=== PATIENT | female | born 1945 | race Asian ===

== ENCOUNTER 2018-04-22 09:05 | Day surgery (SDC) | payer OTHER, MEDICARE ==
[2018-04-21 15:09] VITALS: BMI 22.6
[~2018-04-22 09:05] MED LIST: ACETAMINOPHEN 325 MG TABLET (FP) PO PRN; CHONDROITIN SU A/HYALUR SOD 1 KIT IO ONE; CYCLOPENTOLATE HCL 1% OPHTH SOLN 2 ML BOTTLE OP SCH; EPINEPHrine/PF 1 MG/1 ML (1:1,000) AMPULE SQ ONE; FLURBIPROFEN 0.03% OPHTH SOLN 2.5 ML BOTTLE OP SCH; LIDOCAINE HCL 1% PRESERVATIVE FREE - 30ML VIAL IO ONE; OFLOXACIN 0.3% OPHTHALMIC SOLUTION 5 ML BOTTLE OP SCH; PHENYLEPHRINE 2.5% OPHTH SOLN 15 ML BOTTLE OP SCH; TETRACAINE 0.5% OPHTH SOLN 2 ML BOTTLE TP ONE; TROPICAMIDE 1% OPHTH SOLN 15 ML BOTTLE OP SCH; TRYPAN BLUE 0.5 ML DISP.SYRIN IO ONE
[2018-04-22] MEDS ORDERED: FLURBIPROFEN 0.03% OPHTH SOLN 2.5 ML BOTTLE ONE (09:41)
[2018-04-22] MEDS ORDERED: TROPICAMIDE 1% OPHTH SOLN 15 ML BOTTLE ONE (09:42)
[2018-04-22] MEDS ORDERED: CYCLOPENTOLATE HCL 1% OPHTH SOLN 2 ML BOTTLE ONE (09:42)
[2018-04-22] MEDS ORDERED: OFLOXACIN 0.3% OPHTHALMIC SOLUTION 5 ML BOTTLE ONE (09:42)
[2018-04-22] MEDS ORDERED: PHENYLEPHRINE 2.5% OPHTH SOLN 15 ML BOTTLE ONE (09:42)
[2018-04-22 09:49] VITALS: TEMP 98.2
[2018-04-22] MEDS ORDERED: TETRACAINE 0.5% OPHTH SOLN 2 ML BOTTLE TP ONE (11:48)
[2018-04-22] MEDS ORDERED: MIDAZOLAM HCL 2 MG/2 ML SINGLE DOSE VIAL ONE (11:51)
[2018-04-22] MEDS ORDERED: LIDOCAINE HCL 1% PRESERVATIVE FREE - 30ML VIAL IO ONE (12:00)
[2018-04-22] MEDS ORDERED: CHONDROITIN SU A/HYALUR SOD 1 KIT IO ONE (12:01)
[2018-04-22] MEDS ORDERED: EPINEPHrine/PF 1 MG/1 ML (1:1,000) AMPULE SQ ONE (12:01)
[2018-04-22] MEDS ORDERED: TETRACAINE 0.5% OPHTH SOLN 2 ML BOTTLE ONE (13:23)
[2018-04-22] MEDS ORDERED: EPINEPHrine/PF 1 MG/1 ML (1:1,000) AMPULE ONE (13:23)
[2018-04-22] MEDS ORDERED: LIDOCAINE HCL/PF 1% SDV 5ML VIAL ONE (13:23)
--- NOTE | 2018-04-22 13:40 | SPEC ---
DATE OF OPERATION: DATE OF DICTATION: 04/22/2018 PREOPERATIVE DIAGNOSIS: Cataract, left eye. POSTOPERATIVE DIAGNOSIS: Cataract, left eye. PROCEDURE: Phacoemulsification of left eye with posterior chamber intraocular lens implantation, the lens used [id number], 22.0-diopter power, serial number [id number]. SURGEON: Iglesia Luther MD ANESTHESIA: Topical, MAC. COMPLICATIONS: None. PROCEDURE: The patient was brought to the operating room and correctly identified along with the operative site and the correct intraocular lens baird. The patient was then prepped and draped in the usual sterile fashion including 5% Betadine solution in the conjunctival sac and an eyelid drape. An eyelid speculum was then placed in the eye. A paracentesis port was created and approximately 0.5 mL of preservative-free lidocaine was then injected into the eye. Viscoelastic was then injected to inflate the anterior chamber. A temporal clear corneal wound was created. A continuous circular capsulorrhexis was performed. The nucleus was then hydrodissected with BSS and removed with phacoemulsification. The remaining cortical material was irrigated and aspirated. Viscoelastic was injected to inflate the capsular bag and the intraocular lens was then implanted into the capsular bag. The remaining viscoelastic was irrigated and aspirated from the eye. The IOL was noted to be well centered and completely covered by the anterior capsulorrhexis. Topical vancomycin was placed and the eye patched and shielded. All wounds were tested and found to be watertight. No suture was placed. The eye was then shielded. The patient was then discharged from the operating room in stable condition. IGLESIA LUTHER M.D. [id number]
[2018-04-22 14:01] VITALS: BP 125/56; PULSE 58
[2018-04-22] MEDS ORDERED: CHONDROITIN SU A/HYALUR SOD 1 KIT ONE (14:19)
== END 2018-04-22 14:01 | disposition home or self-care (01) ==
LOC: JASU-SURG 09:05
PROVIDERS: ATTEND Ophthalmology
PROC: 08RK3JZ Replacement of Left Lens with Synthetic Substitute, Percutaneous Approach (ICD-10-PCS; principal; 2018-04-22 11:00)
DX: H26.9 Unspecified cataract (principal)

== ENCOUNTER 2021-12-08 13:14 | Emergency (ER) | payer OTHER, MEDICARE ==
[2021-12-08 13:27] VITALS: BMI 22.4
[2021-12-08] MEDS ORDERED: ACETAMINOPHEN 1000 MG/100 ML BAG IVPB ONE (13:50)
[2021-12-08] MEDS ORDERED: ACETAMINOPHEN INJECTION 100 ML IVPB ONE (13:56)
[2021-12-08 14:21] LABS: BASO % 0.2 % (0-2.0); EOS % 1.2 % (0-4.5); HEMOGLOBIN 12.9 GM/dL (10.7-15.3); LYMPH % 13.2 % (8-40); MCH 31.8 pg (25.7-33.7); MCHC 33.8 g/dl (32.0-36.0); MEAN CELL VOLUME 94.1 fl (80-96); MEAN PLT VOLUME 8.8 fl (7.5-11.1); MONO % 6.8 % (3.8-10.2); NEUT % 78.6 % (42.8-82.8); PLATELET COUNT 163 10^3/uL (134-434); RBC 4.04 M/mm3 (3.60-5.2); RDW 13.7 % (11.6-15.6); WHITE BLOOD COUNT 7.7 K/mm3 (4.0-10.0)
[2021-12-08 14:38] LABS: EPI CELLS 4 /uL (0-25.1); HYALINE CASTS 1 /uL (0-3.1); URINE APPEARANCE CLEAR; URINE BACTERIA 10 /uL (0-1359); URINE BILIRUBIN NEGATIVE (NEGATIVE); URINE COLOR DK YELLOW; URINE GLUCOSE (UA) NEGATIVE (NEGATIVE); URINE KETONE NEGATIVE (NEGATIVE); URINE LEUK ESTERASE TRACE (NEGATIVE); URINE NITRITE NEGATIVE (NEGATIVE); URINE PROTEIN NEGATIVE (NEGATIVE); URINE UROBILINOGEN 0.2 mg/dL (0.2-1.0); URINE WBC 9 /uL (0-25.8)
[2021-12-08 14:40] LABS: URINE RBC 72.5 /uL (0-23.9)
[2021-12-08 14:42] LABS: CALCIUM 9.6 mg/dL (8.5-10.1)
[2021-12-08 14:43] LABS: ALBUMIN 3.9 g/dl (3.4-5.0); BLOOD UREA NITROGEN 16.2 mg/dL (7-18)
[2021-12-08 14:47] LABS: BILIRUBIN,TOTAL 0.5 mg/dL (0.2-1); TOT PROT 7.5 g/dl (6.4-8.2)
[2021-12-08 18:56] VITALS: BP 140/80; PULSE 63; TEMP 98.7
== END 2021-12-08 18:55 | disposition home or self-care (01) ==
LOC: JER 13:14
PROC: 3E0333Z Introduction of Anti-inflammatory into Peripheral Vein, Percutaneous Approach (ICD-10-PCS; principal; 2021-12-08)
DX: R10.31 Right lower quadrant pain (principal)
CPT/HCPCS: 36415; 74177-TC; 80053; 81003; 83690; 85025; 87086; 99285-25; Q9967

== ENCOUNTER 2022-02-20 04:38 | Day surgery (SDC) | payer OTHER, MEDICARE ==
[2022-02-15 13:17] VITALS: BMI 23.0
[~2022-02-20 04:38] MED LIST changes: -CHONDROITIN SU A/HYALUR SOD 1 KIT IO ONE; -EPINEPHrine/PF 1 MG/1 ML (1:1,000) AMPULE SQ ONE; -FLURBIPROFEN 0.03% OPHTH SOLN 2.5 ML BOTTLE OP SCH; +KETOROLAC TROMETHAMINE 0.5% EYE DROP 1 DROP DROPS OP SCH; -LIDOCAINE HCL 1% PRESERVATIVE FREE - 30ML VIAL IO ONE; -TETRACAINE 0.5% OPHTH SOLN 2 ML BOTTLE TP ONE; -TRYPAN BLUE 0.5 ML DISP.SYRIN IO ONE
[2022-02-20] MEDS ORDERED: CHONDROITIN SU A/HYALUR SOD 1 KIT ONE (07:03)
[2022-02-20] MEDS ORDERED: LIDOCAINE HCL/PF 1% SDV 5ML VIAL ONE (07:03)
[2022-02-20] MEDS ORDERED: TROPICAMIDE 1% OPHTH SOLN 15 ML BOTTLE ONE (07:06)
[2022-02-20] MEDS ORDERED: OFLOXACIN 0.3% OPHTHALMIC SOLUTION 5 ML BOTTLE ONE (07:06)
[2022-02-20] MEDS ORDERED: CYCLOPENTOLATE HCL 1% OPHTH SOLN 2 ML BOTTLE ONE (07:06)
[2022-02-20] MEDS ORDERED: PHENYLEPHRINE 2.5% OPTHALMIC DROP BOTTLE ONE (07:06)
[2022-02-20] MEDS ORDERED: KETOROLAC TROMETHAMINE 0.5% EYE DROP 1 DROP DROPS ONE (07:06)
[2022-02-20] MEDS ORDERED: EPINEPHrine/PF 1 MG/1 ML (1:1,000) AMPULE ONE (07:13)
[2022-02-20] MEDS ORDERED: BSS (NA/CA/MG/K) BALANCED SALT SOLUTION OPHTH SOLN 15 ML BOTTLE ONE (07:13)
[2022-02-20] MEDS ORDERED: TETRACAINE 0.5% OPHTH SOLN 2 ML BOTTLE ONE (07:13)
[2022-02-20] MEDS ORDERED: POVIDONE-IODINE 5% OPHTHALMIC PREP 30 ML SOLUTION ONE (07:14)
[2022-02-20] MEDS ORDERED: KETOROLAC TROMETHAMINE 0.5% EYE DROP 1 DROP DROPS OD ONE ×3 (07:15→07:25)
[2022-02-20] MEDS ORDERED: TROPICAMIDE 0.5% OPHTHALMIC SOLN 15 ML BOTTLE OD ONE (07:15)
[2022-02-20] MEDS ORDERED: PHENYLEPHRINE 2.5% OPHTH SOLN 15 ML BOTTLE OD ONE ×3 (07:15→07:25)
[2022-02-20] MEDS ORDERED: CYCLOPENTOLATE HCL 1% OPHTH SOLN 2 ML BOTTLE OD ONE ×3 (07:15→07:25)
[2022-02-20] MEDS ORDERED: OFLOXACIN 0.3% OPHTHALMIC SOLUTION 5 ML BOTTLE OD ONE ×3 (07:15→07:25)
[2022-02-20] MEDS ORDERED: TROPICAMIDE 1% OPHTH SOLN 15 ML BOTTLE OD ONE ×2 (07:20→07:25)
[2022-02-20] MEDS ORDERED: MIDAZOLAM HCL 2 MG/2 ML SINGLE DOSE VIAL ONE (08:43)
[2022-02-20] MEDS ORDERED: TETRACAINE 0.5% OPHTH SOLN 2 ML BOTTLE OD ONE (08:48)
[2022-02-20] MEDS ORDERED: POVIDONE-IODINE 5% OPHTHALMIC PREP 30 ML SOLUTION OD ONE (08:50)
[2022-02-20] MEDS ORDERED: BSS (NA/CA/MG/K) BALANCED SALT SOLUTION OPHTH SOLN 15 ML BOTTLE IO ONE (09:02)
[2022-02-20] MEDS ORDERED: LIDOCAINE HCL 1% PRESERVATIVE FREE - 30ML VIAL IO ONE (09:03)
[2022-02-20] MEDS ORDERED: CHONDROITIN SU A/HYALUR SOD 1 KIT IO ONE (09:04)
[2022-02-20] MEDS ORDERED: EPINEPHrine/PF 1 MG/1 ML (1:1,000) AMPULE SQ ONE (09:05)
[2022-02-20 11:03] VITALS: BP 114/60; PULSE 60; TEMP 97.5
== END 2022-02-20 10:40 | disposition home or self-care (01) ==
LOC: JASU-SURG 04:38
PROVIDERS: ATTEND Ophthalmology
PROC: 08RJ3JZ Replacement of Right Lens with Synthetic Substitute, Percutaneous Approach (ICD-10-PCS; principal; 2022-02-20 09:00)
DX: H26.9 Unspecified cataract (principal)

== ENCOUNTER 2022-06-14 15:45 | Inpatient (IN) | payer OTHER, MEDICARE ==
[2022-06-14 18:40] LABS: BASO % 1.1 % (0-2.0); EOS % 3.4 % (0-4.5); HEMATOCRIT 37.3 % (32.4-45.2); HEMOGLOBIN 12.6 GM/dL (10.7-15.3); LYMPH % 23.3 % (8-40); MCH 31.8 pg (25.7-33.7); MCHC 33.9 g/dl (32.0-36.0); MEAN CELL VOLUME 93.7 fl (80-96); MEAN PLT VOLUME 8.6 fl (7.5-11.1); MONO % 8.9 % (3.8-10.2); NEUT % 63.3 % (42.8-82.8); PLATELET COUNT 193 10^3/uL (134-434); RBC 3.98 M/mm3 (3.60-5.2); RDW 14.2 % (11.6-15.6); WHITE BLOOD COUNT 4.5 K/mm3 (4.0-10.0)
[2022-06-14 19:04] LABS: BLOOD UREA NITROGEN 16.1 mg/dL (7-18); CALCIUM 9.2 mg/dL (8.5-10.1)
[2022-06-14 19:09] LABS: BILIRUBIN,TOTAL 0.4 mg/dL (0.2-1); TOT PROT 7.4 g/dl (6.4-8.2)
[2022-06-14 19:15] LABS: PH,URINE 5.5 (5.0-8.0); URINE APPEARANCE CLEAR; URINE BILIRUBIN NEGATIVE (NEGATIVE); URINE COLOR YELLOW; URINE GLUCOSE (UA) NEGATIVE (NEGATIVE); URINE KETONE NEGATIVE (NEGATIVE); URINE LEUK ESTERASE NEGATIVE (NEGATIVE); URINE NITRITE NEGATIVE (NEGATIVE); URINE PROTEIN NEGATIVE (NEGATIVE); URINE UROBILINOGEN 0.2 mg/dL (0.2-1.0)
[2022-06-14] MEDS ORDERED: ASPIRIN 81 MG CHEWABLE TABLETS PO ONE (21:08)
[2022-06-14] MEDS ORDERED: HEPARIN NA (PORCINE) 5,000 UNITS/ML 1ML VIAL IVPUSH ONE (21:16)
[2022-06-14] MEDS ORDERED: HEPARIN - 25,000 UNIT in SODIUM CHLORIDE 495 ML IV SCH (21:30)
[2022-06-14] MEDS ORDERED: HEPARIN NA (PORCINE) 5,000 UNITS/ML 1ML VIAL ONE (21:39)
[2022-06-14] MEDS ORDERED: ASPIRIN 325 MG TABLET ONE (21:39)
[2022-06-14] MEDS ORDERED: HEPARIN INFUSION - 25,000 UNITS/500 ML INFUS.BAG IVPB ONE (21:39)
[2022-06-14 22:42] LABS: INR 1.2 (0.83-1.09); PROTHROMBIN TIME (PATIENT) 13.8 SEC (9.7-13.0)
[2022-06-14 22:45] LABS: ACTIVATED PTT 38.4 SECONDS (25.2-36.5)
[2022-06-14] MEDS ORDERED: ATORVASTATIN CA 20 MG TABLET (FP) ONE (23:14)
[2022-06-14] MEDS: ATORVASTATIN CA 20 MG TABLET (FP) PO SCH (23:22)
[2022-06-15 06:28] LABS: BASO % 1.2 % (0-2.0); EOS % 4.4 % (0-4.5); HEMATOCRIT 35.6 % (32.4-45.2); LYMPH % 30.8 % (8-40); MCH 31.5 pg (25.7-33.7); MCHC 33.7 g/dl (32.0-36.0); MEAN CELL VOLUME 93.5 fl (80-96); MEAN PLT VOLUME 9.4 fl (7.5-11.1); MONO % 10.5 % (3.8-10.2); NEUT % 53.1 % (42.8-82.8); PLATELET COUNT 194 10^3/uL (134-434); RBC 3.81 M/mm3 (3.60-5.2); RDW 14.3 % (11.6-15.6); WHITE BLOOD COUNT 3.9 K/mm3 (4.0-10.0)
[2022-06-15 06:43] LABS: CHLORIDE 111 mmol/L (98-107); SODIUM 144 mmol/L (136-145)
[2022-06-15 06:44] LABS: CALCIUM 8.5 mg/dL (8.5-10.1)
[2022-06-15 06:45] LABS: ANION GAP 5 MMOL/L (8-16); CO2 28 mmol/L (21-32); MAGNESIUM 2.1 mg/dL (1.8-2.4)
[2022-06-15 06:47] LABS: ALBUMIN 3.4 g/dl (3.4-5.0); GLUCOSE,RANDOM 79 mg/dL (74-106)
[2022-06-15 06:48] LABS: CREATININE 0.9 mg/dL (0.55-1.3)
[2022-06-15 06:49] LABS: SGOT/AST 32 U/L (15-37); SGPT/ALT 50 U/L (13-61)
[2022-06-15 06:50] LABS: CHOLESTEROL 184 mg/dL (50-200); TOT PROT 6.1 g/dl (6.4-8.2); TRIGLYCERIDES 129 mg/dL (0-150)
[2022-06-15 06:51] LABS: BILIRUBIN,TOTAL 0.4 mg/dL (0.2-1); LDL CHOLESTEROL (ONLY SJRH) 116 mg/dL (5-100)
[2022-06-15 06:52] LABS: ALK PHOS 57 U/L (45-117)
[2022-06-15 06:53] LABS: HDL CHOLESTEROL 43 mg/dL (40-60)
[2022-06-15] MEDS ORDERED: APIXABAN 5 MG TABLET ONE ×2 (09:37→21:11)
[2022-06-15] MEDS ORDERED: ASPIRIN 81 MG CHEWABLE TABLETS ONE (09:38)
[2022-06-15] MEDS: APIXABAN 5 MG TABLET PO SCH ×2 (10:20→21:34)
[2022-06-15] MEDS: ASPIRIN 81 MG CHEWABLE TABLETS PO SCH (10:20)
[2022-06-15] MEDS: DISOPYRAMIDE PHOSPHATE 150 MG PO SCH ×2 (12:13→17:07)
[2022-06-15] MEDS ORDERED: POLYETHYLENE GLYCOL (HEALTHYLAX) 3350 17 GM PACKET ONE (13:01)
[2022-06-15] MEDS: POLYETHYLENE GLYCOL (HEALTHYLAX) 3350 17 GM PACKET PO SCH (13:02)
[2022-06-15] MEDS ORDERED: SENNOSIDES 8.6MG TABLET (FP) PO PRN (20:55)
[2022-06-15] MEDS ORDERED: SENNOSIDES 8.6MG TABLET (FP) PO ONE (21:11)
[2022-06-15] MEDS ORDERED: CARVEDILOL 25 MG TABLET (FP) ONE (21:11)
[2022-06-15] MEDS ORDERED: ATORVASTATIN CA 20 MG TABLET (FP) ONE (21:11)
[2022-06-15] MEDS: CARVEDILOL 25 MG TABLET (FP) PO SCH (21:34)
[2022-06-15] MEDS: ATORVASTATIN CA 20 MG TABLET (FP) PO SCH (21:34)
[2022-06-16] MEDS: DISOPYRAMIDE PHOSPHATE 150 MG PO SCH ×4 (01:20→18:30)
[2022-06-16] MEDS ORDERED: ACETAMINOPHEN 500 MG TABLET (FP) PO ONE (09:59)
[2022-06-16] MEDS ORDERED: ASPIRIN 81 MG CHEWABLE TABLETS ONE (10:11)
[2022-06-16] MEDS ORDERED: POLYETHYLENE GLYCOL (HEALTHYLAX) 3350 17 GM PACKET ONE (10:11)
[2022-06-16] MEDS ORDERED: ACETAMINOPHEN 325 MG TABLET (FP) ONE (10:11)
[2022-06-16] MEDS ORDERED: APIXABAN 5 MG TABLET ONE ×2 (10:11→21:24)
[2022-06-16] MEDS ORDERED: CARVEDILOL 25 MG TABLET (FP) ONE ×2 (10:12→21:24)
[2022-06-16] MEDS: POLYETHYLENE GLYCOL (HEALTHYLAX) 3350 17 GM PACKET PO SCH (10:20)
[2022-06-16] MEDS: CARVEDILOL 25 MG TABLET (FP) PO SCH ×2 (10:20→21:37)
[2022-06-16] MEDS: APIXABAN 5 MG TABLET PO SCH ×2 (10:20→21:38)
[2022-06-16] MEDS: ASPIRIN 81 MG CHEWABLE TABLETS PO SCH (10:20)
[2022-06-16] MEDS ORDERED: IBUPROFEN 600 MG TABLET (FP) PO ONE (17:54)
[2022-06-16] MEDS ORDERED: ATORVASTATIN CA 20 MG TABLET (FP) ONE (21:24)
[2022-06-16] MEDS: ATORVASTATIN CA 20 MG TABLET (FP) PO SCH (21:38)
[2022-06-17] MEDS: DISOPYRAMIDE PHOSPHATE 150 MG PO SCH ×5 (01:40→22:00)
[2022-06-17 01:51] VITALS: BMI 22.0
[2022-06-17] MEDS: ASPIRIN 81 MG CHEWABLE TABLETS PO SCH (09:36)
[2022-06-17] MEDS: APIXABAN 5 MG TABLET PO SCH ×2 (09:36→21:58)
[2022-06-17] MEDS: POLYETHYLENE GLYCOL (HEALTHYLAX) 3350 17 GM PACKET PO SCH (09:36)
[2022-06-17] MEDS: CARVEDILOL 25 MG TABLET (FP) PO SCH ×2 (09:36→21:58)
[2022-06-17] MEDS: ATORVASTATIN CA 20 MG TABLET (FP) PO SCH (21:58)
[2022-06-18] MEDS ORDERED: SIMETHICONE 80 MG TAB.CHEW (FP) PO ONE (01:11)
[2022-06-18] MEDS: DISOPYRAMIDE PHOSPHATE 150 MG PO SCH ×4 (04:54→22:02)
[2022-06-18] MEDS: POLYETHYLENE GLYCOL (HEALTHYLAX) 3350 17 GM PACKET PO SCH (10:10)
[2022-06-18] MEDS: ASPIRIN 81 MG CHEWABLE TABLETS PO SCH (10:11)
[2022-06-18] MEDS: APIXABAN 5 MG TABLET PO SCH ×2 (10:11→22:02)
[2022-06-18] MEDS: CARVEDILOL 25 MG TABLET (FP) PO SCH ×2 (10:11→22:02)
[2022-06-18] MEDS: ATORVASTATIN CA 20 MG TABLET (FP) PO SCH (22:02)
[2022-06-19] MEDS: DISOPYRAMIDE PHOSPHATE 150 MG PO SCH ×4 (05:49→22:26)
[2022-06-19] MEDS: APIXABAN 5 MG TABLET PO SCH ×2 (10:10→22:10)
[2022-06-19] MEDS: POLYETHYLENE GLYCOL (HEALTHYLAX) 3350 17 GM PACKET PO SCH (10:10)
[2022-06-19] MEDS: ASPIRIN 81 MG CHEWABLE TABLETS PO SCH (10:11)
[2022-06-19] MEDS: CARVEDILOL 25 MG TABLET (FP) PO SCH ×2 (10:11→22:10)
[2022-06-19] MEDS: ATORVASTATIN CA 20 MG TABLET (FP) PO SCH (22:10)
[2022-06-20] MEDS: DISOPYRAMIDE PHOSPHATE 150 MG PO SCH ×3 (05:36→17:55)
[2022-06-20] MEDS: ASPIRIN 81 MG CHEWABLE TABLETS PO SCH (10:23)
[2022-06-20] MEDS: CARVEDILOL 25 MG TABLET (FP) PO SCH (10:23)
[2022-06-20] MEDS: APIXABAN 5 MG TABLET PO SCH (10:24)
[2022-06-20] MEDS: POLYETHYLENE GLYCOL (HEALTHYLAX) 3350 17 GM PACKET PO SCH (10:24)
[2022-06-20 14:09] VITALS: BP 114/64; RESP 20; TEMP 98.2
[2022-06-20 19:57] VITALS: PULSE 56
== END 2022-06-20 20:30 | disposition short-term general hospital (02) | DRG 281 ==
LOC: JER 15:45 → JERBED 21:24 → J4W 06-16 22:47
PROVIDERS: ADMIT Internal Medicine; ATTEND Family Medicine
DX: I21.4 Non-ST elevation (NSTEMI) myocardial infarction (principal); I42.0 Dilated cardiomyopathy; I48.91 Unspecified atrial fibrillation; I10 Essential (primary) hypertension; E78.5 Hyperlipidemia, unspecified; K59.00 Constipation, unspecified; M81.0 Age-related osteoporosis without current pathological fracture; K80.20 Calculus of gallbladder without cholecystitis without obstruction; N28.1 Cyst of kidney, acquired; R10.32 Left lower quadrant pain; M25.512 Pain in left shoulder; R91.1 Solitary pulmonary nodule; I25.10 Atherosclerotic heart disease of native coronary artery without angina pectoris; I44.0 Atrioventricular block, first degree; R00.1 Bradycardia, unspecified; R77.8 Other specified abnormalities of plasma proteins; Z95.0 Presence of cardiac pacemaker
CPT/HCPCS: 0241U-QW; 36415; 71045-TC-FY; 71250-TC; 80053; 80061; 81003; 82962; 83690; 83735; 84484; 85025; 85610; 85730; 87086; 93005; 93010; 93306-TC; 99285-25; C9803-CS; U0003; U0005

== ENCOUNTER 2022-08-09 11:11 | Emergency (ER) | payer OTHER, MEDICARE ==
[2022-08-09 11:32] VITALS: RESP 18; TEMP 98; BMI 22.4
[2022-08-09] MEDS ORDERED: DISOPYRAMIDE PHOSPHATE 150 MG PO ONE (12:15)
[2022-08-09] MEDS ORDERED: DISOPYRAMIDE PHOSPHATE 150 MG CAPSULE PO ONE ×2 (12:59→18:33)
[2022-08-09 16:48] LABS: BASO % 0.7 % (0-2.0); EOS % 1.8 % (0-4.5); HEMATOCRIT 35.5 % (32.4-45.2); LYMPH % 20.5 % (8-40); MCH 31.4 pg (25.7-33.7); MCHC 33.9 g/dl (32.0-36.0); MEAN CELL VOLUME 92.7 fl (80-96); MEAN PLT VOLUME 7.8 fl (7.5-11.1); MONO % 14.3 % (3.8-10.2); NEUT % 62.7 % (42.8-82.8); PLATELET COUNT 237 10^3/uL (134-434); RBC 3.83 M/mm3 (3.60-5.2); RDW 14.1 % (11.6-15.6); WHITE BLOOD COUNT 4.9 K/mm3 (4.0-10.0)
[2022-08-09 17:06] LABS: CHLORIDE 111 mmol/L (98-107); SODIUM 145 mmol/L (136-145)
[2022-08-09 17:08] LABS: ALBUMIN 3.4 g/dl (3.4-5.0); ANION GAP 6 MMOL/L (8-16); BLOOD UREA NITROGEN 14.9 mg/dL (7-18); CALCIUM 9.4 mg/dL (8.5-10.1); CO2 29 mmol/L (21-32); GLUCOSE,RANDOM 68 mg/dL (74-106)
[2022-08-09 17:11] LABS: CREATININE 0.8 mg/dL (0.55-1.3); SGOT/AST 27 U/L (15-37); SGPT/ALT 36 U/L (13-61)
[2022-08-09 17:13] LABS: BILIRUBIN,TOTAL 0.4 mg/dL (0.2-1); TOT PROT 6.4 g/dl (6.4-8.2)
[2022-08-09 17:14] LABS: ALK PHOS 77 U/L (45-117)
[2022-08-09 19:24] VITALS: BP 138/62; PULSE 82
== END 2022-08-09 19:24 | disposition home or self-care (01) ==
LOC: JER 11:11
DX: R00.2 Palpitations (principal)
CPT/HCPCS: 36415; 80053; 84484; 85025; 93005; 93010; 99283-25

== ENCOUNTER 2022-12-26 07:00 | Observation (INO) | payer OTHER, MEDICARE ==
[2022-12-26 07:14] VITALS: BMI 22.4
[2022-12-26 08:28] LABS: INR 1.22 (0.83-1.09); PROTHROMBIN TIME (PATIENT) 14.1 SEC (9.7-13.0)
[2022-12-26 08:35] LABS: BASO % 1.2 % (0-2.0); LYMPH % 24.4 % (8-40); MCH 31.2 pg (25.7-33.7); MCHC 34.3 g/dl (32.0-36.0); MEAN CELL VOLUME 91.1 fl (80-96); MEAN PLT VOLUME 8.7 fl (7.5-11.1); NEUT % 59.4 % (42.8-82.8); PLATELET COUNT 157 10^3/uL (134-434); RBC 3.85 M/mm3 (3.60-5.2); RDW 14.7 % (11.6-15.6); WHITE BLOOD COUNT 3.8 K/mm3 (4.0-10.0)
[2022-12-26 08:41] LABS: CALCIUM 8.5 mg/dL (8.5-10.1)
[2022-12-26 08:42] LABS: ALBUMIN 3.3 g/dl (3.4-5.0)
[2022-12-26 08:47] LABS: BILIRUBIN,TOTAL 0.4 mg/dL (0.2-1); TOT PROT 6.1 g/dl (6.4-8.2)
[2022-12-26 08:48] LABS: BLOOD UREA NITROGEN 20.6 mg/dL (7-18)
[2022-12-26 09:54] LABS: MAGNESIUM 2.1 mg/dL (1.8-2.4)
[2022-12-26 18:00] LABS: N-TERMINAL BNP 2441.6 pg/ml (5-450)
[2022-12-26] MEDS: APIXABAN 5 MG TABLET PO SCH (21:24)
[2022-12-26] MEDS ORDERED: ATORVASTATIN CA 20 MG TABLET (FP) PO SCH (22:00)
[2022-12-26] MEDS ORDERED: CARVEDILOL 6.25 MG TABLET (FP) PO SCH (22:00)
[2022-12-26] MEDS ORDERED: DISOPYRAMIDE PHOSPHATE 150 MG PO SCH (22:00)
[2022-12-27 04:05] VITALS: RESP 18
[2022-12-27] MEDS ORDERED: CARVEDILOL 25 MG TABLET (FP) PO SCH (06:24)
[2022-12-27] MEDS ORDERED: DISOPYRAMIDE PHOSPHATE 150 MG PO SCH (07:00)
[2022-12-27 07:56] LABS: HEMATOCRIT 35.9 % (32.4-45.2); HEMOGLOBIN 12.2 GM/dL (10.7-15.3); MCH 30.8 pg (25.7-33.7); MEAN CELL VOLUME 90.6 fl (80-96); MEAN PLT VOLUME 9.2 fl (7.5-11.1); PLATELET COUNT 168 10^3/uL (134-434); RBC 3.96 M/mm3 (3.60-5.2); RDW 14.6 % (11.6-15.6); WHITE BLOOD COUNT 3.4 K/mm3 (4.0-10.0)
[2022-12-27 08:12] LABS: CALCIUM 8.8 mg/dL (8.5-10.1)
[2022-12-27 08:15] LABS: ALBUMIN 3.4 g/dl (3.4-5.0); CREATININE 0.8 mg/dL (0.55-1.3)
[2022-12-27 08:16] LABS: BILIRUBIN,TOTAL 0.3 mg/dL (0.2-1)
[2022-12-27 08:17] LABS: TOT PROT 6.4 g/dl (6.4-8.2)
[2022-12-27 08:41] LABS: MAGNESIUM 2.1 mg/dL (1.8-2.4)
[2022-12-27] MEDS: APIXABAN 5 MG TABLET PO SCH (09:26)
[2022-12-27] MEDS ORDERED: ASPIRIN COATED 81 MG TABLET.EC PO SCH (10:00)
[2022-12-27] MEDS ORDERED: LISINOPRIL 10 MG TABLET PO SCH (10:00)
[2022-12-27] MEDS ORDERED: VERAPAMIL HCL 240 MG E.R. TABLET PO SCH (10:00)
[2022-12-27 18:28] VITALS: BP 131/71; PULSE 61; TEMP 98.4
== END 2022-12-27 19:25 | disposition home or self-care (01) ==
LOC: JER 07:00 → JERBED 12:50 → J4W 15:37
PROVIDERS: ADMIT Family Medicine; ATTEND Family Medicine
DX: I47.20 Ventricular tachycardia, unspecified (principal); R77.8 Other specified abnormalities of plasma proteins; Z95.0 Presence of cardiac pacemaker; I48.91 Unspecified atrial fibrillation; R10.32 Left lower quadrant pain; E78.5 Hyperlipidemia, unspecified; I10 Essential (primary) hypertension; R91.1 Solitary pulmonary nodule; I42.9 Cardiomyopathy, unspecified; I21.4 Non-ST elevation (NSTEMI) myocardial infarction
CPT/HCPCS: 0241U-QW; 36415; 71045-TC-FY; 76700-TC; 80053; 80061; 83735; 83880; 84443; 84484; 85025; 85027; 85610; 85730; 93005; 93010; 99285-25; G0378

== ENCOUNTER 2023-02-07 16:33 | Observation (INO) | payer OTHER, MEDICARE ==
[2023-02-07 17:40] LABS: BASO % 0.5 % (0-2.0); HEMATOCRIT 34.6 % (32.4-45.2); HEMOGLOBIN 11.9 GM/dL (10.7-15.3); LYMPH % 23.6 % (8-40); MCH 31.1 pg (25.7-33.7); MCHC 34.3 g/dl (32.0-36.0); MEAN CELL VOLUME 90.8 fl (80-96); MEAN PLT VOLUME 9.5 fl (7.5-11.1); MONO % 11.8 % (3.8-10.2); NEUT % 59.1 % (42.8-82.8); PLATELET COUNT 152 10^3/uL (134-434); RBC 3.81 M/mm3 (3.60-5.2); RDW 14.4 % (11.6-15.6); WHITE BLOOD COUNT 4.2 K/mm3 (4.0-10.0)
[2023-02-07 17:47] LABS: INR 1.45 (0.83-1.09); PROTHROMBIN TIME (PATIENT) 16.8 SEC (9.7-13.0)
[2023-02-07 17:49] LABS: ACTIVATED PTT 39.3 SECONDS (25.2-36.5)
[2023-02-07 17:55] LABS: CALCIUM 9.1 mg/dL (8.5-10.1)
[2023-02-07 17:56] LABS: ALBUMIN 3.6 g/dl (3.4-5.0); BLOOD UREA NITROGEN 21.4 mg/dL (7-18); MAGNESIUM 2.1 mg/dL (1.8-2.4)
[2023-02-07 17:59] LABS: CREATININE 1.1 mg/dL (0.55-1.3)
[2023-02-07 18:01] LABS: BILIRUBIN,TOTAL 0.3 mg/dL (0.2-1); TOT PROT 6.5 g/dl (6.4-8.2)
[2023-02-07] MEDS ORDERED: DISOPYRAMIDE PHOSPHATE 150 MG PO SCH (22:00)
[2023-02-07] MEDS ORDERED: ATORVASTATIN CA 20 MG TABLET (FP) PO SCH (22:00)
[2023-02-07] MEDS ORDERED: ATORVASTATIN CA 20 MG TABLET (FP) ONE (22:34)
[2023-02-07] MEDS ORDERED: CARVEDILOL 25 MG TABLET (FP) ONE (22:35)
[2023-02-07] MEDS ORDERED: APIXABAN 5 MG TABLET ONE (22:35)
[2023-02-07] MEDS: CARVEDILOL 25 MG TABLET (FP) PO SCH (22:40)
[2023-02-07] MEDS: APIXABAN 5 MG TABLET PO SCH (22:52)
[2023-02-08 00:17] VITALS: BMI 22.6
[2023-02-08] MEDS ORDERED: DISOPYRAMIDE PHOSPHATE 150 MG PO SCH ×2 (06:00→14:00)
[2023-02-08 08:19] LABS: BASO % 0.8 % (0-2.0); EOS % 6.7 % (0-4.5); HEMATOCRIT 35.3 % (32.4-45.2); HEMOGLOBIN 12.1 GM/dL (10.7-15.3); LYMPH % 25.2 % (8-40); MCH 31.4 pg (25.7-33.7); MCHC 34.4 g/dl (32.0-36.0); MEAN CELL VOLUME 91.4 fl (80-96); MEAN PLT VOLUME 9.4 fl (7.5-11.1); MONO % 11.4 % (3.8-10.2); NEUT % 55.9 % (42.8-82.8); PLATELET COUNT 157 10^3/uL (134-434); RBC 3.86 M/mm3 (3.60-5.2); RDW 14.6 % (11.6-15.6); WHITE BLOOD COUNT 3.6 K/mm3 (4.0-10.0)
[2023-02-08 08:36] LABS: ALBUMIN 3.7 g/dl (3.4-5.0); BLOOD UREA NITROGEN 14.5 mg/dL (7-18); CALCIUM 8.9 mg/dL (8.5-10.1)
[2023-02-08 08:39] LABS: CREATININE 0.8 mg/dL (0.55-1.3)
[2023-02-08 08:41] LABS: BILIRUBIN,TOTAL 0.6 mg/dL (0.2-1); TOT PROT 6.7 g/dl (6.4-8.2)
[2023-02-08] MEDS: CARVEDILOL 25 MG TABLET (FP) PO SCH (09:36)
[2023-02-08] MEDS: APIXABAN 5 MG TABLET PO SCH (09:37)
[2023-02-08 09:43] VITALS: RESP 18
[2023-02-08] MEDS ORDERED: LISINOPRIL 10 MG TABLET PO SCH (10:00)
[2023-02-08] MEDS ORDERED: VERAPAMIL HCL 240 MG E.R. TABLET PO SCH (10:00)
[2023-02-08 14:43] VITALS: BP 131/72; PULSE 63; TEMP 98.9
[2023-02-09] MEDS ORDERED: ASPIRIN 81 MG CHEWABLE TABLETS PO SCH (10:00)
== END 2023-02-08 17:39 | disposition home or self-care (01) ==
LOC: JER 16:33 → JERBED 18:13 → J4W 23:34
PROVIDERS: ADMIT Internal Medicine; ATTEND Family Medicine
DX: R00.2 Palpitations (principal); R07.89 Other chest pain; I11.0 Hypertensive heart disease with heart failure; I50.30 Unspecified diastolic (congestive) heart failure; I48.91 Unspecified atrial fibrillation; I42.1 Obstructive hypertrophic cardiomyopathy; E78.5 Hyperlipidemia, unspecified; Z95.810 Presence of automatic (implantable) cardiac defibrillator; Z79.01 Long term (current) use of anticoagulants
CPT/HCPCS: 0241U-QW; 36415; 71045-TC-FY; 80053; 83735; 84443; 84484; 85025; 85610; 85730; 93005; 93010; 99285-25; G0378

== ENCOUNTER 2024-06-18 11:51 | Day surgery (SDC) | payer OTHER, MEDICARE ==
[2024-06-18 12:07] VITALS: TEMP 97.8
[2024-06-18] MEDS: ZOLEDRONIC ACID/MAN/WATER 5 MG/100 ML INFUS..BTL IVPB ONE (12:30)
[2024-06-18 15:19] VITALS: BP 142/74; PULSE 67; RESP 18
== END 2024-06-18 14:00 | disposition home or self-care (01) ==
LOC: FINFUSION 11:51 → FM/S 11:53 → FINFUSION 14:00
PROVIDERS: ATTEND Family Medicine
PROC: 3E033GC Introduction of Other Therapeutic Substance into Peripheral Vein, Percutaneous Approach (ICD-10-PCS; principal; 2024-06-18)
DX: M81.8 Other osteoporosis without current pathological fracture (principal)
CPT/HCPCS: 96365; J3489

== ENCOUNTER 2024-12-16 07:04 | Day surgery (SDC) | payer OTHER, MEDICARE ==
[2024-12-15 10:27] VITALS: BMI 21.8
[2024-12-16 10:52] VITALS: TEMP 97.9
[2024-12-16 11:33] VITALS: BP 111/49; PULSE 68; RESP 12
== END 2024-12-16 11:50 | disposition home or self-care (01) ==
LOC: JASU-ENDO 07:04
PROVIDERS: ATTEND Internal Medicine Gastroenterology
PROC: 0DB98ZX Excision of Duodenum, Via Natural or Artificial Opening Endoscopic, Diagnostic (ICD-10-PCS; 2024-12-16)
PROC: 0DB78ZX Excision of Stomach, Pylorus, Via Natural or Artificial Opening Endoscopic, Diagnostic (ICD-10-PCS; 2024-12-16)
PROC: 0DB68ZX Excision of Stomach, Via Natural or Artificial Opening Endoscopic, Diagnostic (ICD-10-PCS; 2024-12-16)
PROC: 0DJD8ZZ Inspection of Lower Intestinal Tract, Via Natural or Artificial Opening Endoscopic (ICD-10-PCS; principal; 2024-12-16 09:30)
DX: K63.89 Other specified diseases of intestine (principal); K64.8 Other hemorrhoids; K29.50 Unspecified chronic gastritis without bleeding; K31.7 Polyp of stomach and duodenum
CPT/HCPCS: 88305-TC; 88342-TC